=== PATIENT | female | born 1985 | race Caucasian/White ===

== ENCOUNTER → 2017-11-12 16:05 | Outpatient (CLI) | payer OTHER, SELFPAY ==
[2017-11-12 17:40] LABS: T4 Free Direct 1.14 ng/dL (0.76-1.46); Thyroid Stim Hormone (TSH) 6.51 uIU/mL (0.358-3.74)
== END ==
DX: E03.9 Hypothyroidism, unspecified (principal)
CPT/HCPCS: 36415; 84439; 84443

== ENCOUNTER 2018-07-04 08:38 | Inpatient (IN) | payer OTHER, SELFPAY ==
[2018-07-04 08:58] VITALS: BMI 29.0
[2018-07-04] MEDS: Lactated Ringers 1,000 ML 50 ML IV ×2 (09:20→16:32)
[2018-07-04 09:43] LABS: Absolute Lymphocyte Count 1.19 X10^3/ul (0.83-4.51); Absolute Neutrophil Count 6.3 X10^3/uL (2.0-7.7); Basophil# 0.02 X10^3/uL; Basophil% 0.2 % (0-1); Eosinophil# 0.06 X10^3/uL; Eosinophils% 0.7 % (0-5); Hematocrit 35.7 % (37-47); Hemoglobin 11.9 g/dl (12.0-15.0); Lymphocyte # 1.19 X10^3/ul (4.0); Lymphocyte % 14.1 % (19-41); Mean Corp Hgb Conc 33.3 g/gl (32-36); Mean Corpuscular Hgb 28.3 pg (27.0-32.0); Mean Corpuscular Volume 84.8 fL (81-99); Mean Platelet Vol. 10.4 fl (6.2-12.0); Monocyte# 0.84 X10^3/uL; Neutrophil # 6.26 X10^3/uL (2.7-7.7); Neutrophil % 74.3 % (47-70); Platelet Count 159 K/mm3 (150-450); RBC Distribution Width CV 14.1 % (11.6-14.6); RBC Distribution Width SD 43.7 fl (35.1-43.9); Red Blood Count 4.21 M/mm3 (4.2-5.4); White Blood Count 8.4 K/mm3 (4.4-11.0)
[2018-07-04 09:44] LABS: POSITIVE COUNT NO; POSITIVE DIFFERENTIAL NO; POSITIVE MORPHOLOGY NO
[2018-07-04 09:56] LABS: Bedside Glucose 89 mg/dL (70-110)
[2018-07-04] MEDS: 0.9% Saline Lock 10 ML Syringe IV ×2 (10:32→13:36)
--- NOTE | 2018-07-04 13:59 | PCM.HP.OB ---
History Date of Admission: 07/04/18 Final EDIL: 06/28/18 Final EDIL Source: US <20 weeks Gestational age: 40 Weeks and 6 Days History of this : This is a 32 year-old, 3 para 2 female at 40-6/7 weeks gestation with EDC of 06/28/2018 presents for spontaneous labor. She denies any gross vaginal bleeding or leaking of fluid. She has had good movement. Admits he has been uncomplicated to date. She has a history of hypothyroidism. She has a history of antepartum anemia. She had an abnormal 1 hour glucose test this and has been checking her blood sugars at home and they have been normal. A history of 2 previous spontaneous vaginal deliveries at full-term without complications. Allergies No Known Allergies Allergy (Verified 07/04/18 09:00) Home Medications: Home Medications Levothyroxine 137 mcg PO DAILY 07/04/18 Multivitamin Tablet 1 tab PO DAILY 07/04/18 Slow Fe 1 tab PO DAILY 07/04/18 Smoking Status: Never smoker Alcohol: None Number of Fetus(es): 1 History Past Pregnancies: Past Pregnancies Delivery Date Name GA/Weeks Outcome Route Weight Gender Labor Length Anesthesia Delivery Location Provider FOB Review of Systems Constitutional: Denies: Anorexia, Chills, Fever Cardiovascular: Denies: Chest Pain Respiratory: Denies: Cough Skin: Denies: Rash Physical Exam General: Alert, Cooperative, No apparent distress Cardiovascular: Regular rate Lungs: Normal air movement Abdomen: Soft, Non-Distended, Gravid, Appropriate for Gestational Age Extremities:: No edema POLICY AND PLANNING MANAGER: Normal external genitalia Estimated gestational size: Appropriate for gestational size Presentation: Cephalic Cervix Dilation (cm): 7 - arom moderate light msf Station: 0 Effacement (%): 90 Assessment/Plan This is a 32 year-old, 3 para 2 at 40-6/7 weeks gestation with spontaneous labor. #1, may have epidural, nitrous oxide or Nubain as needed for pain relief. Estimated weight is less than 4500 g clinically and pelvis clinically adequate to expect vaginal delivery. Group B strep positive. Prophylaxis started.
[2018-07-04] MEDS: fentaNYL-bupivacaine (epidural) 100 ML BAG EPIDURAL (16:32)
[2018-07-04] MEDS: Oxytocin 30 units/NS 500 ml 30 UNITS/500 ML IV.SOLN 334 UNITS IV (17:51)
--- NOTE | 2018-07-04 17:57 | PCM.OB.VAG ---
Vaginal Delivery Maternal Presentation: Active Labor Method of Induction: Amniotomy Amniotic Membrane Rupture Type: Artificial Amniotic Fluid Description: Lightly stained meconium Final EDIL: 06/28/18 Final EDIL Source: US <20 weeks Gestational age: 40 Weeks and 6 Days Date of Procedure: 07/04/18 Pre-Operative Diagnosis: labor Post-Operative Diagnosis: same Surgery/ Procedure Performed: Spontaneous Vaginal Delivery Type of Anesthesia: Epidural Description of Procedure: A vigorous female infant was delivered OP over intact perineum. The remainder the infant was delivered with maternal pushing and gentle traction only in less than 15 seconds. The Pitocin infusion was initiated for active management of the third stage. The cord was clamped and cut after 1 minute. The was attended to by the waiting nursing staff. The placenta was delivered spontaneously and intact. The cervix and vagina were intact. There was a small first-degree vaginal laceration that was hemostatic. It was not repaired. Sponge and needle counts were correct. A vaginal sweep was completed by me. Presentation: ROP Placental Delivery Description: Spontaneous Placenta Disposition: [facility] Cord Vessel Description: 3 Vessels Cord Entanglement: None Drain: - - None Estimated Blood Loss: 200 Infant A gender: Female (1 minute): 9 (5 minute): 9 Episiotomy Description: None Laceration: 1st degree - Vaginal Medications given after delivery: IV Pitocin Complications: None
[2018-07-04] MEDS: Oxytocin 30 units/NS 500 ml 30 UNITS/500 ML IV.SOLN 167 UNITS IV (18:21)
--- NOTE | 2018-07-04 21:37 | DCINST_ITS ---
Discharge Diet: No Restrictions Discharge Activity: Return to Normal Activity, May not drive while taking narcotic pain medications., May Shower May resume sexual activity in: 4-6 weeks Additional Activity Instructions:: Nothing in the vagina for 4-6 weeks. You may return to work/school in 6 weeks. Call your doctor if your incision/area has: Continuous Slow Oozing, Sudden Increased Bleeding, Increased Pain/ Swelling, Increased Redness, Foul Smelling Discharge Additional Instructions: If you experience any of the following, contact your healthcare provider. * Bleeding that soaks a pad every hour for 2 hours * Fever 100.4 or higher * Unrelieved incision or abdominal pain * Swelling, redness, discharge or bleeding from your incision or episiotomy site * Your incision begins to separate * Problems urinating (including inability to urinate or burning while urinating). * Visual changes * Severe headache * Flu-like symptoms * Pain or redness in one of both of your breasts * Pain, warmth, tenderness or swelling in your legs, especially the calf area * Frequent nausea and vomiting * Symptoms of depression or anxiety If you experience any of the following, call 911 or go to the nearest Emergency Room. * Chest pain * Problems breathing * Seizure activity * Partial or complete paralysis of a body part, slurred speech, weakness or drooping of the face, or a sudden inability to walk or hold your balance Allergies/Adverse Reactions: Allergies No Known Allergies Allergy (Verified 07/04/18 09:00) Medications to take at Discharge Ibuprofen [Motrin] 600 mg PO Q6H PRN #60 tablet 07/04/18 Levothyroxine 137 mcg PO DAILY #0 07/04/18 Multivitamin Tablet 1 tab PO DAILY 07/04/18 The following prescriptions were given: Ibuprofen [Motrin] 600 mg PO Q6H PRN #60 tablet PRN Reason: Pain Please Follow Up With: Natasha Sams MD - [phone] When: Call to make an appointment with your doctor in 1-2 and 6 weeks or as needed Primary Care Physician: Care Physician,No Primary [Primary Care Provider] - Test Results: Test results from this visit will be discussed in further detail at your follow- up appointment, if applicable.
[2018-07-04] MEDS: Naproxen 250 MG Tablet 500 MG PO (22:56)
[2018-07-04 23:53] VITALS: BP 101/60; PULSE 81; RESP 16; TEMP 36.8; O2SAT 97
[2018-07-05 04:20] VITALS: BP 110/65; PULSE 87; RESP 20; TEMP 37.2
--- NOTE | 2018-07-05 08:31 | PN.OBGYN_ITS ---
Subjective: Pain well controlled, average lochia. - Physical Exam General: Alert, Cooperative, No apparent distress Vital Signs Temp Pulse Resp BP Pulse Ox 98.9 F 87 20 H 110/65 97 07/05/18 04:20 07/05/18 04:20 07/05/18 04:20 07/05/18 04:20 07/04/18 23:53 Oxygen Delivery Method Room Air Weight: 79.1 kg Body Mass Index (BMI) 29.0 Intake and Output for Last 24 Hours 07/03/18 07/04/18 07/05/18 23:59 23:59 23:59 Intake Total 1346 / 1346 Output Total 900 / 900 Balance 446 / 446 Laboratory Tests Past 24 Hrs 07/04/18 07/04/18 09:00 09:00 WBC 8.4 RBC 4.21 Hgb 11.9 L Hct 35.7 L MCV 84.8 MCH 28.3 MCHC 33.3 RDW 14.1 RDW Differential 43.7 Plt Count 159 MPV 10.4 Immature Gran % (Auto) 0.700 Neut % (Auto) 74.3 H Lymph % (Auto) 14.1 L [place] % (Auto) 10.0 Eos % (Auto) 0.7 Baso % (Auto) 0.2 Absolute Neuts (auto) 6.3 Absolute Lymphs (auto) 1.19 Total Counted Not Reportable Blood Type A POSITIVE Antibody Screen NEGATIVE POC Glucose 07/04/18 09:49 POC Glucose 89 Medical Necessity - Tobacco Use Smoking Status: Never smoker Assessment/Plan day #1. Doing well. Infant is breast-feeding. Likely home later today.
[2018-07-05 08:44] VITALS: BP 102/54; PULSE 91; RESP 16; TEMP 36.6
[2018-07-05] MEDS: Naproxen 250 MG Tablet 500 MG PO (09:04)
[2018-07-05 12:15] VITALS: BP 97/56; PULSE 81; RESP 16; TEMP 36.5
[2018-07-05 16:20] VITALS: BP 99/61; PULSE 77; RESP 16; TEMP 36.7
== END 2018-07-05 20:15 | disposition home or self-care (01) | DRG 807 ==
PROVIDERS: Admitting Provider Obstetrics & Gynecology; Referring Provider Obstetrics & Gynecology; Visit Provider Obstetrics & Gynecology
DX: O99.824 Streptococcus B carrier state complicating childbirth (principal); O70.0 First degree perineal laceration during delivery; O99.284 Endocrine, nutritional and metabolic diseases complicating childbirth; E03.9 Hypothyroidism, unspecified; O77.0 Labor and delivery complicated by meconium in amniotic fluid; Z3A.40 40 weeks gestation of pregnancy; Z37.0 Single live birth
CPT/HCPCS: 59050; 82962; 85025; 86850; 86900; 99218; J7120; A4216; G0378

== ENCOUNTER → 2019-05-31 10:16 | Outpatient (CLI) | payer OTHER, SELFPAY ==
[2019-05-31 13:03] LABS: T4 Free Direct 1.09 ng/dL (0.76-1.46)
== END ==
DX: E03.9 Hypothyroidism, unspecified (principal)
CPT/HCPCS: 36415; 84439; 84443

== ENCOUNTER 2020-01-18 09:20 | Inpatient (IN) | payer OTHER, SELFPAY ==
[2020-01-18] VITALS (34 sets, daily range): BP systolic 101–140; BP diastolic 55–76; PULSE 64–100; RESP 18; TEMP 36.8–37.1; O2SAT 98–100; BMI 27.1
[2020-01-18 09:21] LABS: ROM Internal Control Test YES-OK TO RESULT pt. (Internal QC); ROM Patient Test POSITIVE (Negative)
[2020-01-18] MEDS: Lactated Ringers 1,000 ML 50 ML IV (09:55)
[2020-01-18 10:07] LABS: Absolute Lymphocyte Count 1.14 X10^3/uL (0.83-4.51); Absolute Neutrophil Count 6.3 X10^3/uL (2.0-7.7); Basophil# 0.04 X10^3/uL; Basophil% 0.5 % (0-1); Eosinophil# 0.05 X10^3/uL; Eosinophils% 0.6 % (0-5); Hematocrit 34.8 % (37-47); Hemoglobin 11.8 g/dL (12.0-15.0); Lymphocyte # 1.14 X10^3/ul (4.0); Mean Corp Hgb Conc 33.9 g/dL (32-36); Mean Corpuscular Hgb 28.6 pg (27.0-32.0); Mean Corpuscular Volume 84.3 fL (81-99); Mean Platelet Vol. 10.4 fl (6.2-12.0); Monocyte# 0.56 X10^3/uL; Monocyte% 6.9 % (0-10); NRBC Flagged by Analyzer 0 % (0-5); Neutrophil # 6.27 X10^3/uL (2.7-7.7); Platelet Count 180 K/mm3 (150-450); RBC Distribution Width CV 12.8 % (11.6-14.6); RBC Distribution Width SD 39.1 fl (35.1-43.9); Red Blood Count 4.13 M/mm3 (4.2-5.4); White Blood Count 8.1 K/mm3 (4.4-11.0)
[2020-01-18] MEDS: Oxytocin 30 units/NS 500 ml 30 UNITS/500 ML IV.SOLN IV (10:35)
--- NOTE | 2020-01-18 12:53 | PCM.PN.OB ---
Subjective: Patient seen at bedside. Sitting on birthing ball. Feeling contractions but stated are not very painful. Not having to breathe through them. Still debating if she will get an epidural or not. Patient does not desire CE at this time. - Physical Exam Vitals/I&O's: Vital Signs Temp Pulse BP Pulse Ox 98.2 F 79 110/61 99 01/18/20 12:03 01/18/20 12:03 01/18/20 12:03 01/18/20 12:03 Weight: 163 lb Body Mass Index (BMI) 27.1 Intake and Output for Last 24 Hours 01/16/20 01/17/20 01/18/20 23:59 23:59 23:59 Intake Total 107.97 / 107.97 Balance 107.97 / 107.97 General: Alert, Oriented x3 Oral: Moist Mucosa Lungs: Normal air movement Cardiovascular: Regular rate Abdomen: Soft, Non Tender Skin: No rashes Neurological: Cranial nerves II-XII grossly intact Psych/Mental Status: Normal Affect Laboratory Results 01/18/20 09:05: Vag Amniotic Fld Detect POSITIVE H 01/18/20 09:55: WBC 8.1, RBC 4.13 L, Hgb 11.8 L, Hct 34.8 L, MCV 84.3, MCH 28.6, MCHC 33.9, RDW Std Deviation 39.1, RDW Coeff of [place] 12.8, Plt Count 180, MPV 10.4, Immature Gran % (Auto) 1.000 H, Neut % (Auto) 77.0 H, Lymph % (Auto) 14.0 L, [place] % (Auto) 6.9, Eos % (Auto) 0.6, Baso % (Auto) 0.5, Absolute Neuts (auto) 6.3, Absolute Lymphs (auto) 1.14, Nucleated RBC % 0 01/18/20 09:55: Blood Type A POSITIVE, Antibody Screen NEGATIVE Current Medications Acetaminophen (Tylenol) 325 - 650 mg PO Q4H PRN PRN PRN Reason: Pain Score 1-3/10 Al Hydroxide/Mg Hydroxide (Mylanta Ii) 15 - 30 ml PO Q4H PRN PRN PRN Reason: INDIGESTION Citric Acid/Sodium Citrate (Bicitra) 30 ml PO X1 PRN PRN Reason: Section Fentanyl Citrate (Sublimaze (100mcg Ampule)) 25 - 50 mcg IV Q2H PRN PRN PRN Reason: Pain Score 4-10/10 Lactated Ringer's () 500 mls @ 999 mls/hr IV .Q31M PRN PRN Reason: Epidural Lactated Ringer's () 500 mls @ 999 mls/hr IV .Q31M PRN PRN Reason: Corrective Measures Lactated Ringer's () 1,000 mls @ 50 mls/hr IV .Q20H JADE Last Admin: 01/18/20 09:55 Dose: 50 mls/hr Documented by: Oxytocin/Sodium Chloride () 30 units in 500 mls @ 2 mls/hr IV .Q250H JADE Last Infusion: 01/18/20 12:04 Dose: 4 mls/hr Documented by: Penicillin G Potassium/Dextrose (Penicillin G Potassium) 3 mu in 50 mls @ 100 mls/hr IV Q4H JADE Ondansetron HCl (Zofran) 4 mg IV Q4H PRN PRN PRN Reason: NAUSEA Prochlorperazine Edisylate (Compazine Iv) 10 mg IV Q6H PRN PRN PRN Reason: NAUSEA Sodium Chloride () 10 - 40 ml IV X1 PRN PRN Reason: SALINE FLUSH Medical Necessity - Tobacco Use Smoking Status: Never smoker Assessment/Plan at 41.1 weeks gestation with spontaneous rupture of membranes Category 1 tracing NST reactive Titrate Pitocin per protocol Ambulate as needed Pain medications if indicated Anticipate
--- NOTE | 2020-01-18 12:58 | PCM.HP.OB ---
- Problem List (1) Post term , 41 weeks Status: Acute (2) Spontaneous rupture of amniotic membranes Status: Acute History Date of Admission: 07/04/18 Final EDIL: 01/10/20 Final EDIL Source: US <20 weeks Gestational age: 41 Weeks and 1 Days History of this : This is a 34 year-old, G [4], P [3], at 41.1 weeks gestational age that presents for S.R.O.M for clear fluid this morning at 0430. Positive movement. Denies any vaginal bleeding. Having irregular contractions that are not painful. complicated by hypothyroidism, history of macrosomic , increased blood glucose level with GCT, refused 3 hour GTT but normal A1C level. History of PP depression. Allergies No Known Allergies Allergy (Verified 01/18/20 08:55) Home Medications: Home Medications Multivitamin Tablet 1 tab PO DAILY 07/04/18 Levothyroxine 200 mcg PO DAILY 01/18/20 Smoking Status: Never smoker Number of Fetus(es): 1 NST - FHR Rate Baby A Baseline: 135 Variability:: Moderate Accelerations:: 15 x 15 NST Reactive:: Yes FHR Category:: Category I Uterine Activity:: TOCO- 1-5 minutes, palpate mild and relaxed in between History Past Pregnancies: Past Pregnancies Delivery Date Name GA/ Weeks Outcome Route Wt Infant Sex Labor Length Anesthesia Delivery Location Provider FOB Labs: A+ Rubella- immune HB-neg HC- neg RPR- NR HIV- NR GBS- positive Declines LARC Expected Infant Delivery Method: Spontaneous Vaginal Review of Systems Constitutional: Denies: Chills, Fever Eyes: Denies: Blurred vision HEENT: Denies: Head Aches Cardiovascular: Denies: Chest Pain Respiratory: Denies: Cough, Shortness of Breath Gastrointestinal: Denies: Abdominal Pain Genitourinary: Denies: Dysuria Neurological: Denies: Headaches Psychiatric: Reports: Anxiety Physical Exam Vitals: Vital Signs Temp Pulse BP Pulse Ox 98.2 F 79 110/61 99 01/18/20 12:03 01/18/20 12:03 01/18/20 12:03 01/18/20 12:03 General: Alert, Oriented x3 Cardiovascular: Regular rate Lungs: Normal air movement Abdomen: Soft, Non Tender Neurological: Cranial nerves II-XII grossly intact Estimated gestational size: Appropriate for gestational size Assessment/Plan All Active Problems Post term , 41 weeks (Acute) Spontaneous rupture of amniotic membranes (Acute) at 41.1 weeks gestation with S.R.O.M Admit to labor and delivery Routine labs Start IV fluids GBS positive. Start PCN 5 million units IV x1 then PCN 3 million units IV every 4 hours until delivery Start Pitocin and titrate per protocol Pain medications if needed Anticipate Dr. Harirs notified and is collaborating physician
[2020-01-18] MEDS: Lactated Ringers 500 ML 999 ML IV (14:45)
[2020-01-18] MEDS: fentaNYL-bupivacaine (epidural) 100 ML BAG EPIDURAL (15:40)
--- NOTE | 2020-01-18 17:11 | PCM.PN.OB ---
Patient Problems: Active and Suspected Problems Post term , 41 weeks (Acute) Spontaneous rupture of amniotic membranes (Acute) Subjective: Patient seen at bedside. Comfortable with epidural. Denies any pain. Feeling some mild pressure in bottom at this time. - Physical Exam Vitals/I&O's: Vital Signs Temp Pulse BP Pulse Ox 98.4 F 71 117/58 L 100 01/18/20 15:20 01/18/20 16:58 01/18/20 16:58 01/18/20 16:57 Weight: 163 lb Body Mass Index (BMI) 27.1 Intake and Output for Last 24 Hours 01/16/20 01/17/20 01/18/20 23:59 23:59 23:59 Intake Total 853.26 / 853.26 Balance 853.26 / 853.26 General: Alert, Oriented x3 Lungs: Normal air movement Cardiovascular: Regular rate Abdomen: Soft, Non Tender Neurological: Cranial nerves II-XII grossly intact Laboratory Results 01/18/20 09:05: Vag Amniotic Fld Detect POSITIVE H 01/18/20 09:55: WBC 8.1, RBC 4.13 L, Hgb 11.8 L, Hct 34.8 L, MCV 84.3, MCH 28.6, MCHC 33.9, RDW Std Deviation 39.1, RDW Coeff of [place] 12.8, Plt Count 180, MPV 10.4, Immature Gran % (Auto) 1.000 H, Neut % (Auto) 77.0 H, Lymph % (Auto) 14.0 L, [place] % (Auto) 6.9, Eos % (Auto) 0.6, Baso % (Auto) 0.5, Absolute Neuts (auto) 6.3, Absolute Lymphs (auto) 1.14, Nucleated RBC % 0 01/18/20 09:55: Blood Type A POSITIVE, Antibody Screen NEGATIVE Current Medications Acetaminophen (Tylenol) 325 - 650 mg PO Q4H PRN PRN PRN Reason: Pain Score 1-3/10 Al Hydroxide/Mg Hydroxide (Mylanta Ii) 15 - 30 ml PO Q4H PRN PRN PRN Reason: INDIGESTION Citric Acid/Sodium Citrate (Bicitra) 30 ml PO X1 PRN PRN Reason: Section Ephedrine Sulfate () 10 mg IV Q10M PRN PRN Reason: hypotension Ephedrine Sulfate () 10 mg IM Q30M PRN PRN Reason: hypotension Fentanyl Citrate (Sublimaze (100mcg Ampule)) 25 - 50 mcg IV Q2H PRN PRN PRN Reason: Pain Score 4-10/10 Fentanyl/Bupivacaine/Sodium Chlor () 0 ml EPIDURAL UD JADE; Protocol Lactated Ringer's () 500 mls @ 999 mls/hr IV .Q31M PRN PRN Reason: Epidural Last Infusion: 01/18/20 15:12 Dose: Infused Documented by: Lactated Ringer's () 500 mls @ 999 mls/hr IV .Q31M PRN PRN Reason: Corrective Measures Lactated Ringer's () 1,000 mls @ 50 mls/hr IV .Q20H JADE Last Infusion: 01/18/20 14:45 Dose: 200 mls/hr Documented by: Oxytocin/Sodium Chloride () 30 units in 500 mls @ 2 mls/hr IV .Q250H [facility] Last Infusion: 01/18/20 13:05 Dose: 6 mls/hr Documented by: Penicillin G Potassium/Dextrose (Penicillin G Potassium) 3 mu in 50 mls @ 100 mls/hr IV Q4H JADE Last Infusion: 01/18/20 14:40 Dose: Infused Documented by: Naloxone HCl 4 mg/ Dextrose 504 mls @ 0 mls/hr IV .Q0M PRN; Protocol PRN Reason: To maintain Resp. rate >10 Naloxone HCl (Narcan) 0.02 mg IV Q1M PRN PRN Reason: RR< 10 AND PT UNRESPONSIVE Ondansetron HCl (Zofran) 4 mg IV Q4H PRN PRN PRN Reason: NAUSEA Prochlorperazine Edisylate (Compazine Iv) 10 mg IV Q6H PRN PRN PRN Reason: NAUSEA Sodium Chloride () 10 - 40 ml IV X1 PRN PRN Reason: SALINE FLUSH Medical Necessity - Tobacco Use Smoking Status: Never smoker Assessment/Plan All Active Problems Post term , 41 weeks (Acute) Spontaneous rupture of amniotic membranes (Acute) at 41.1 weeks gestation active labor Category 1 tracing Pitocin at 6mu/min Patient treated with PCN IV appropriately for GBS positive CE- 10/100/-1 Patient to start pushing Anticipate
[2020-01-18] MEDS: Oxytocin 30 units/NS 500 ml 30 UNITS/500 ML IV.SOLN 334 UNITS IV (17:35)
--- NOTE | 2020-01-18 17:46 | PCM.OPRPT ---
Problem List (1) Post term , 41 weeks Status: Acute (2) Spontaneous rupture of amniotic membranes Status: Acute Report of Operation Date of Procedure: 01/18/20 Vaginal Delivery Maternal Presentation: Spontaneous Rupture of Membranes Amniotic Membrane Rupture Type: Spontaneous at home Rupture of Membrane time: 0430 Amniotic Fluid Description: Clear Final EDIL: 01/10/20 Gestational age: 41 Weeks and 1 Days Date of Procedure: 01/18/20 Pre-Operative Diagnosis: Term gestation, Spontaneous Rupture of membranes Post-Operative Diagnosis: Same, live male Surgery/ Procedure Performed: Spontaneous Vaginal Delivery Type of Anesthesia: Epidural Description of Procedure: Patient quickly progressed to complete dilation and was feeling pressure in bottom. With initial push delivered head. Anterior shoulder and body delivered quickly over intact perineum. Vigorous infant placed on maternal abdomen. Delayed cord clamping for 5 minutes. Cord cut by myself and infant placed immediately skin to skin. Pitocin started for active management of 3rd stage. Placenta delivered quickly and was intact with a 3 vessel cord. Perineum inspected and is intact. Hemostasis achieved. Vaginal sweep completed by myself. Sponge and instrument count correct. EBL 200ml. Fundus firm at U. being put to breast. Mom and infant bonding at this time. Presentation: Vertex, GAURAV Placental Delivery Description: Spontaneous Placenta Disposition: [facility] Cord Vessel Description: 3 Vessels Cord Entanglement: None Estimated Blood Loss: 200 Infant A gender: Male (1 minute): 9 (5 minute): 9 Episiotomy Description: None Laceration: None Medications given after delivery: IV Pitocin Complications: None
[2020-01-19] MEDS: Ibuprofen 600 MG Tablet PO ×2 (01:04→10:10)
[2020-01-19 01:06] VITALS: BP 101/60; PULSE 67; RESP 18; TEMP 36.7
[2020-01-19 04:45] VITALS: BP 101/55; PULSE 72; RESP 18; TEMP 36.7
[2020-01-19 08:11] VITALS: BP 98/61; PULSE 61; RESP 14; TEMP 36.4
[2020-01-19 12:42] VITALS: BP 102/64; PULSE 75; RESP 18; TEMP 36.6
--- NOTE | 2020-01-19 13:16 | PCM.PN.OB ---
Patient Problems: Active and Suspected Problems Post term , 41 weeks (Acute) Spontaneous rupture of amniotic membranes (Acute) Subjective: Doing well per patient and nursing staff. Ambulating and taking PO without difficulty. Voiding and passing flatus. . Lochia normal. No headache, visual scotoma, increased pain or leg pain. Planning D/C home today. - Physical Exam Vitals/I&O's: Vital Signs Temp Pulse Resp BP Pulse Ox 97.8 F 75 18 102/64 100 01/19/20 12:42 01/19/20 12:42 01/19/20 12:42 01/19/20 12:42 01/18/20 16:57 Oxygen Delivery Method Room Air Weight: 163 lb Body Mass Index (BMI) 27.1 Intake and Output for Last 24 Hours 01/17/20 01/18/20 01/19/20 23:59 23:59 23:59 Intake Total 1926.33 / 1926.33 Output Total 1050 / 1050 Balance 876.33 / 876.33 General: Alert, Oriented x3, Cooperative HEENT: Atraumatic, Normocephalic Neck: Trachea Midline Lungs: Clear to auscultation, Normal air movement, No rhonchi, No wheeze Cardiovascular: Regular rate, Regular Rhythm, No murmurs Abdomen: Bowel Sounds Present, Soft Extremities: No edema Neurological: Deep Tendon Reflexes 2+/4 and Symmetrical Psych/Mental Status: Normal Affect, Appropriate Current Medications Acetaminophen (Tylenol) 1,000 mg PO Q8H PRN PRN PRN Reason: Pain Score 1-3 Bisacodyl (Dulcolax) 10 mg RECTAL UD PRN PRN Reason: If no BM Dibucaine (Dibucaine) 1 applic TOPICAL TID PRN PRN; Protocol PRN Reason: Discomfort Hydrocortisone (Hytone) 1 applic TOPICAL TID PRN PRN; Protocol PRN Reason: Discomfort Ibuprofen (Motrin) 600 mg PO Q6H PRN PRN PRN Reason: Pain Score 1-3 Last Admin: 01/19/20 10:10 Dose: 600 mg Documented by: Methylergonovine Maleate (Methergine) 0.2 mg IM X1 PRN PRN Reason: Excess bleeding/uterine atony Ondansetron HCl (Zofran) 4 mg IV Q4H PRN PRN PRN Reason: Nausea Senna/Docusate Sodium (Senokot-S, Carmina-Colace) 1 - 2 tablet PO DAILY PRN PRN PRN Reason: Constipation Simethicone (Mylicon) 80 mg PO PCHS PRN PRN Reason: Indigestion/Stomach pain Sodium Chloride () 5 - 15 ml IV UD PRN PRN Reason: SALINE FLUSH Medical Necessity - Tobacco Use Smoking Status: Never smoker Assessment/Plan All Active Problems Post term , 41 weeks (Acute) Spontaneous rupture of amniotic membranes (Acute) A:PPD #1 P: 1) Routine and discharge instructions reviewed 2) Follow up in 2 weeks for virtual visit and 6 weeks for visit 3) Will use OTC motrin for pain 4) Discharge home.
--- NOTE | 2020-01-19 15:33 | DCINST_ITS ---
Discharge Diet: No Restrictions Discharge Activity: Return to Normal Activity, May not drive while taking narcotic pain medications., May Shower, May Take a Tub Bath May resume sexual activity in: 4-6 weeks Weight Bearing Status: Full weight bearing Additional Activity Instructions:: Nothing in the vagina for 4-6 weeks. You may return to work/school in 6 weeks. Call your doctor if your incision/area has: Continuous Slow Oozing, Sudden Increased Bleeding, Increased Pain/ Swelling, Increased Redness, Foul Smelling Discharge Additional Instructions: If you experience any of the following, contact your healthcare provider. * Bleeding that soaks a pad every hour for 2 hours * Fever 100.4 or higher * Unrelieved incision or abdominal pain * Swelling, redness, discharge or bleeding from your incision or episiotomy site * Your incision begins to separate * Problems urinating (including inability to urinate or burning while urinating). * Visual changes * Severe headache * Flu-like symptoms * Pain or redness in one of both of your breasts * Pain, warmth, tenderness or swelling in your legs, especially the calf area * Frequent nausea and vomiting * Symptoms of depression or anxiety If you experience any of the following, call 911 or go to the nearest Emergency Room. * Chest pain * Problems breathing * Seizure activity * Partial or complete paralysis of a body part, slurred speech, weakness or drooping of the face, or a sudden inability to walk or hold your balance Allergies/Adverse Reactions: Allergies No Known Allergies Allergy (Verified 01/18/20 08:55) Medications to take at Discharge Multivitamin Tablet 1 tab PO DAILY 07/04/18 Levothyroxine 200 mcg PO DAILY 01/18/20 Please Follow Up With: Esther Chaney CNM When: Call to make an appointment with your doctor in 6 weeks. If you had elevated Blood Pressure or 4th degree laceration you will need to be seen in 2 weeks. Primary Care Physician: Lianet Mason NP, COMPOSING MACHINE OPERATOR/TENDER-C [Primary Care Provider] - Test Results: Test results from this visit will be discussed in further detail at your follow- up appointment, if applicable.
[2020-01-19 18:42] VITALS: BP 102/63; PULSE 75; RESP 18; TEMP 36.6
== END 2020-01-19 19:25 | disposition home or self-care (01) | DRG 807 ==
LOC: OBT 09:26 → WP 09:26
PROVIDERS: Admitting Provider Advanced Practice Midwife; PCP Nurse Practitioner Family; Referring Provider Advanced Practice Midwife; Visit Provider Advanced Practice Midwife
DX: O48.0 Post-term pregnancy (principal); O99.824 Streptococcus B carrier state complicating childbirth; O99.284 Endocrine, nutritional and metabolic diseases complicating childbirth; E03.1 Congenital hypothyroidism without goiter; K21.9 Gastro-esophageal reflux disease without esophagitis; Z79.890 Hormone replacement therapy; Z3A.41 41 weeks gestation of pregnancy; Z37.0 Single live birth
CPT/HCPCS: 59025; 59050; 84112; 85025; 86850; 86900; 86901; 99218; J7120; G0378